=== PATIENT | female | born 1940 | race Caucasian/White ===

== ENCOUNTER 2018-04-24 11:46 | Emergency (ER) | payer OTHER ==
--- NOTE | 2018-04-24 13:09 | EDPHY ---
General Time Seen by Provider: 04/24/18 12:53 Narrative: CHIEF COMPLAINT: Fall HISTORY OF PRESENT ILLNESS: Patient presents prior vehicle with complaints of fall. She says she was walking out of her residence just prior to arrival when she slipped on some ice. She remember striking her head on strip along the front of the stairs. She did not lose consciousness she is a minimal headache. She has very mild neck pain that soft tissue only. She has no visual disturbance. She has moderate bleeding from the right eyebrow laceration that has stopped pressure. She has no numbness, tingling weakness. No difficulty ambulating although she does describe twisting her ankle and also landing on her knees. She has no use of anticoagulants. She denies any chest, back or abdominal pain. Tetanus up-to -date less than 5 years. No other associated complaints or modifying factors REVIEW OF SYSTEMS: 10 systems were reviewed and negative with the exception of the elements mentioned in the history of present illness. PCP: Located in [place] SPECIALISTS: None currently PAST MEDICAL HISTORY: Denies any ongoing medications or medical problems PAST SURGICAL HISTORY: No recent surgeries SOCIAL HISTORY: Nonsmoker. Lives independently. Spends her [place] in [place] and remainder of [facility] and [place]. FAMILY HISTORY: Noncontributory EXAMINATION: Vitals: Triage VS reviewed General Appearance: Alert, no distress Head: normocephalic. Right eyebrow laceration as below. There is mild ecchymosis to the right maxilla. There is no Lynch sign or raccoon eyes. No depression deformity. Eyes: Pupils equal and round, no conjunctival pallor or injection. EOMs are symmetric and painless. No diplopia. No subconjunctival hemorrhage or hyphema. ENT, Mouth: Mucous membranes moist. Airway patent. Neck: Midline trachea. Supple and no midline tenderness, crepitus or deformity. There is mild soft tissue tenderness on the right only. Respiratory: Lungs are clear to auscultation Cardiovascular: Regular rate and rhythm. No murmur. Good signs of perfusion distally. Gastrointestinal: Abdomen is soft and nontender Back: non-tender, no bony abnormalities Neurological: Cranial nerves 2-12 grossly intact. GCS 15. A&O, nonfocal, normal gait. Light sensory symmetric in all extremities. Strength is symmetric in all extremities. Normal [id number]. Patellar reflexes symmetric. Skin: Warm and dry, no rash. 3 cm laceration to the right eyebrow just above the hairline. No pulsatile bleeding or foreign body. No exposure of the galea or frontalis muscle. 1.5 cm laceration over the right maxilla without foreign body or pulsatile bleeding. No deep tissue injury. Extremities: Mild tenderness of the knee symmetrically with no bony tenderness , crepitus or deformity. Range of motion lower extremities symmetric with all compartments soft on the lower extremities. Psychiatric: Mood and affect normal DIFFERENTIAL DIAGNOSES: Including but not limited to concussion, forehead laceration, facial laceration , facial fracture, intracranial hemorrhage, cerebral edema, cervical sprain, cervical strain, cervical fracture, knee sprain, ankle sprain, knee fracture, ankle fracture MDM: 12:50 p.m. Mechanical fall with blunt trauma to the face. There is a laceration over the right eyebrow on the right cheek. She is awake alert. No acute distress no loss of consciousness pre or post fall. She has no chest pain. She does have 2 lacerations that will require suture repair. CT scans of the head cervical spine pending. No anticoagulants. 1:[address]. Notified by radiologist. CT scans of head cervical spine reveal no acute findings. Chronic changes as noted. I have repaired the laceration without difficulty. We discussed head injury precautions, ice to the face as needed. We discussed wound care. We discussed ED precautions. We discussed returning for suture removal in 7 days. I have answered all her questions. She has ambulated in the emergency department. Discharged home stable condition. PROCEDURE: Laceration repair, 1. Consent: Verbal Location: Right eyebrow Length of repair: 3 cm Complexity: Complex Layer involvement: Single Anesthesia: Local. 0.25% Marcaine with epinephrine, 5 mL Irrigation: Extensive Debridement: None Procedure description: Following good anesthesia, the wound was copiously irrigated. Wound bed was explored with a sterile glove, and there is no foreign body noted. No injury to the galea or frontalis. Wound borders were approximated well with good hemostasis. Tolerated well without complication. Range of motion of the eyebrow symmetric pre and postprocedure. Suture/Staple material: 5-0 Prolene, Wound care: Routine as discussed Suture/Staple removal: 7 Days PROCEDURE: Laceration repair, 2. Consent: Verbal Location: Right maxilla Length of repair: 1.5 cm Complexity: Simple Layer involvement: Single Anesthesia: Local per 0.25% Marcaine with epinephrine, 3 mL Irrigation: Extensive Debridement: None Procedure description: Following good anesthesia, the wound was copiously irrigated. Wound bed was explored with a sterile glove, and there is no foreign body noted. Wound borders were approximated well with good hemostasis. Tolerated well without complication. Suture/Staple material: 5-0 Prolene, Wound care: Routine as discussed Suture/Staple removal: 7 Days SUPERVISION: This patient was independently evaluated without direct involvement of or examination by the attending physician. CONSULTATION: None - Diagnostics Imaging: Discussed imaging studies w/ machine scallop cutter Radiologist, I viewed and interpreted images myself - History Smoking Status: Never smoked - Objective Vital Signs: Initial Vital Signs Heart Rate 79 04/24/18 11:58 Respiratory Rate 16 04/24/18 11:58 Blood Pressure 133/96 H 04/24/18 11:58 O2 Sat (%) 97 04/24/18 11:58 O2 Delivery Mode Room Air Allergies/Adverse Reactions: No Known Allergies Allergy (Verified 04/24/18 12:03) Home Medications: Medication Instructions Recorded NK [No Known Home Meds] 04/24/18 Departure - Departure Disposition: Home, Routine, Self-Care Clinical Impression: Laceration of eyebrow, right Qualifiers: Encounter type: initial encounter Qualified Code(s): S01.111A - Laceration without foreign body of right eyelid and periocular area, initial encounter Fall from standing Qualifiers: Encounter type: initial encounter Qualified Code(s): W19.XXXA - Unspecified fall, initial encounter Closed head injury Qualifiers: Encounter type: initial encounter Qualified Code(s): S09.90XA - Unspecified injury of head, initial encounter Facial laceration Qualifiers: Encounter type: initial encounter Qualified Code(s): S01.81XA - Laceration without foreign body of other part of head, initial encounter Condition: Good Instructions: Laceration (ED), Facial Fracture (ED), Care For Your Stitches (ED ), Head Injury (ED) Additional Instructions: 1. Thin layer of bacitracin once daily for the next 2 days 2. Keep the wound covered while showering for the next 3 days 3. Daily wound care as discussed 4. Return here for suture removal in 7 days 5. Return here for signs of infection as discussed including warmth, redness, fever, drainage from the site 6. return here for increasing pain surrounding the laceration 7. Do not submerge the wound in any water, hot tub, swimming pool until sutures removed 8. Return to emergency depart for any headache, neck pain or stiffness, fever, difficulty ambulating Referrals: KASEY DUGGAN [Other] - As per Instructions Physician,Emergency Dept, [Medical Doctor] - As per Instructions (Seven days for suture removal)
[2018-04-24 14:17] VITALS: BP 133/78
== END 2018-04-24 14:17 | disposition home or self-care (01) ==
PROC: 0HQ1XZZ Repair Face Skin, External Approach (ICD-10-PCS; principal; 2018-04-24)
DX: S01.81XA Laceration without foreign body of other part of head, initial encounter (principal); S01.111A Laceration without foreign body of right eyelid and periocular area, initial encounter; W00.0XXA Fall on same level due to ice and snow, initial encounter